=== PATIENT | male | born 1990 | race Caucasian/White ===

== ENCOUNTER → 2021-01-30 | Outpatient (CLI) | payer OTHER ==
--- NOTE | 2021-01-30 13:38 | RAD ---
XR SHOULDER_RIGHT 2+ VIEWS History: Reason: RIGHT SHOULDER PAIN, PUSHING INJURY YESTERDAY. / Spl. Instructions: / History: Technique: 3 views right shoulder Comparison: None. Findings: Normal alignment. No acute fracture. Impression: 1. No acute osseous abnormalities. Electronically signed by: Cy Delgado DO (01/30/2021 1:36 PM) [facility] [place]
== END ==
LOC: RAD 12:18
PROVIDERS: ATTEND Physician Assistant
DX: S43.401A Unspecified sprain of right shoulder joint, initial encounter (principal); M25.511 Pain in right shoulder; X58.XXXA Exposure to other specified factors, initial encounter; Y93.89 Activity, other specified; Y92.89 Other specified places as the place of occurrence of the external cause; Y99.8 Other external cause status
CPT/HCPCS: 73030